=== PATIENT | male | born 1990 | race Caucasian/White ===

== ENCOUNTER → 2019-08-08 | Outpatient (CLI) | payer OTHER ==
[2019-08-08 14:51] LABS: BASO % 0.4 % (0.0-1.0); EOS # 0.1 10*3/uL (0.0-0.4); EOS % 0.7 % (1.0-4.0); HEMATOCRIT 45.2 % (42.0-52.0); HEMOGLOBIN 14.7 g/dl (14.0-18.0); LYMPH # 2.1 10*3/uL (1.3-4.4); LYMPH % 30.6 % (27.0-41.0); MEAN CELL VOLUME 96.4 fl (80.0-94.0); MEAN CORPUSCULAR HGB 31.3 pg (27.0-31.0); MEAN CORPUSCULAR HGB CONC 32.5 g/dl (33.0-37.0); MEAN PLATELET VOLUME 9.3 fl (9.6-12.3); MONO # 0.5 10*3/uL (0.1-1.0); MONO % 7.8 % (3.0-9.0); NEUT # 4.1 10*3/uL (2.3-7.9); NEUT % 60.2 % (47.0-73.0); PLATELET COUNT AUTOMATED 240 10*3/uL (130-400); RED BLOOD COUNT 4.69 10*6/uL (4.50-5.90); RED CELL DISTRI WIDTH 13.2 % (0-14.5); WHITE BLOOD COUNT 6.8 10*3/uL (4.8-10.8)
[2019-08-08 15:23] LABS: ALBUMIN 3.8 gm/dl (3.1-4.5); ALKALINE PHOSPHATASE 49 U/L (45-117); BUN 26 mg/dl (7-24); CHLORIDE 106 mmol/L (98-107); CHOLESTEROL 155 mg/dL (<200); CREATININE 0.73 mg/dL (0.70-1.30); POTASSIUM 4.2 mmol/L (3.5-5.1); SGOT/AST 12 IU/L (3-35); SGPT/ALT 22 U/L (12-78); SODIUM 139 mmol/L (136-145); TOTAL PROTEIN 8.3 gm/dL (6.4-8.2); TRIGLYCERIDES 107 mg/dl (<150); VLDL CHOLESTEROL 21 mg/dL (6-40)
[2019-08-08 15:35] LABS: HDL CHOLESTEROL 51 mg/dl (40-60); LDL CHOLESTEROL 83 mg/dL (9-159); VALPROIC ACID (DEPAKENE) 112.2 ug/ml (50-100)
== END | disposition home or self-care (01) ==
LOC: LAB 14:10
PROVIDERS: Family Medicine
DX: G40.001 Localization-related (focal) (partial) idiopathic epilepsy and epileptic syndromes with seizures of localized onset, not intractable, with status epilepticus (principal)

== ENCOUNTER → 2019-08-28 | Outpatient (CLI) | payer OTHER ==
[2019-08-28 15:34] LABS: BASO % 0.4 % (0.0-1.0); EOS % 0.4 % (1.0-4.0); HEMATOCRIT 42.8 % (42.0-52.0); LYMPH # 2.8 10*3/uL (1.3-4.4); LYMPH % 35.5 % (27.0-41.0); MEAN CELL VOLUME 93.9 fl (80.0-94.0); MEAN CORPUSCULAR HGB 30.7 pg (27.0-31.0); MEAN CORPUSCULAR HGB CONC 32.7 g/dl (33.0-37.0); MEAN PLATELET VOLUME 9.6 fl (9.6-12.3); MONO # 0.6 10*3/uL (0.1-1.0); NEUT # 4.4 10*3/uL (2.3-7.9); NEUT % 55.4 % (47.0-73.0); PLATELET COUNT AUTOMATED 166 10*3/uL (130-400); RED BLOOD COUNT 4.56 10*6/uL (4.50-5.90); RED CELL DISTRI WIDTH 12.9 % (0-14.5); WHITE BLOOD COUNT 7.9 10*3/uL (4.8-10.8)
[2019-08-28 16:14] LABS: ALBUMIN 3.7 gm/dl (3.1-4.5); BUN 26 mg/dl (7-24); CHLORIDE 105 mmol/L (98-107); CREATININE 0.74 mg/dL (0.70-1.30); POTASSIUM 3.6 mmol/L (3.5-5.1); SGOT/AST 10 IU/L (3-35); SGPT/ALT 13 U/L (12-78); SODIUM 138 mmol/L (136-145); TOTAL PROTEIN 7.9 gm/dL (6.4-8.2)
[2019-08-28 16:24] LABS: ALKALINE PHOSPHATASE 40 U/L (45-117); VALPROIC ACID (DEPAKENE) 131.3 ug/ml (50-100)
== END | disposition home or self-care (01) ==
LOC: LAB 15:08
PROVIDERS: Psychiatry & Neurology Clinical Neurophysiology
DX: G40.309 Generalized idiopathic epilepsy and epileptic syndromes, not intractable, without status epilepticus (principal); G91.0 Communicating hydrocephalus; Z98.2 Presence of cerebrospinal fluid drainage device

== ENCOUNTER → 2019-08-31 | Outpatient (CLI) | payer OTHER ==
[2019-08-31 17:08] LABS: FREE T4 0.97 ng/dl (0.76-1.46)
[2019-08-31 17:22] LABS: THYROID STIM HORMONE (HS) 8.92 uIU/ml (0.358-4.75)
== END | disposition home or self-care (01) ==
LOC: LAB 16:12
PROVIDERS: Family Medicine
DX: R94.6 Abnormal results of thyroid function studies (principal)

== ENCOUNTER → 2021-09-16 | Outpatient (CLI) | payer OTHER ==
[2021-09-16 16:39] LABS: BASO % 0.3 % (0.0-1.0); EOS % 0.2 % (1.0-4.0); HEMATOCRIT 43.7 % (42.0-52.0); LYMPH # 2.4 10*3/uL (1.3-4.4); LYMPH % 27.6 % (27.0-41.0); MEAN CORPUSCULAR HGB 31.3 pg (27.0-31.0); MEAN PLATELET VOLUME 10.6 fl (9.6-12.3); MONO # 0.6 10*3/uL (0.1-1.0); MONO % 6.5 % (3.0-9.0); NEUT # 5.6 10*3/uL (2.3-7.9); NEUT % 65.3 % (47.0-73.0); PLATELET COUNT AUTOMATED 223 10*3/uL (130-400); RED CELL DISTRI WIDTH 13.3 % (0-14.5); WHITE BLOOD COUNT 8.6 10*3/uL (4.8-10.8)
[2021-09-16 17:04] LABS: ALBUMIN 3.7 gm/dl (3.1-4.5); BUN 27 mg/dl (7-24); CHLORIDE 105 mmol/L (98-107); CREATININE 0.79 mg/dL (0.70-1.30); POTASSIUM 3.5 mmol/L (3.5-5.1); SGOT/AST 7 IU/L (3-35); SGPT/ALT 14 U/L (12-78); SODIUM 139 mmol/L (136-145)
[2021-09-16 17:10] LABS: ALKALINE PHOSPHATASE 44 U/L (45-117); TOTAL PROTEIN 8.4 gm/dL (6.4-8.2); VALPROIC ACID (DEPAKENE) 131.7 ug/ml (50-100)
== END | disposition home or self-care (01) ==
LOC: LAB 15:39
PROVIDERS: ATTEND Psychiatry & Neurology Clinical Neurophysiology
DX: E03.9 Hypothyroidism, unspecified (principal)

== ENCOUNTER → 2024-11-09 | Outpatient (CLI) | payer OTHER ==
[2024-11-09 17:15] LABS: ALKALINE PHOSPHATASE 46 U/L (46-116); BUN 25 mg/dl (9-23); CHLORIDE 103 mmol/L (98-107); POTASSIUM 3.6 mmol/L (3.4-5.1); SGPT/ALT 8 U/L (5-49); TOTAL PROTEIN 7.3 gm/dL (6.0-8.0)
== END | disposition home or self-care (01) ==
LOC: LAB 16:17
PROVIDERS: ATTEND Psychiatry & Neurology Clinical Neurophysiology
DX: G91.0 Communicating hydrocephalus (principal); F79 Unspecified intellectual disabilities; G40.309 Generalized idiopathic epilepsy and epileptic syndromes, not intractable, without status epilepticus; G93.89 Other specified disorders of brain; E03.9 Hypothyroidism, unspecified; M95.2 Other acquired deformity of head; Z98.2 Presence of cerebrospinal fluid drainage device